=== PATIENT | male | born 1965 | race Caucasian/White ===

== ENCOUNTER → 2018-05-10 | Outpatient (REF) | payer SELFPAY ==
[~2018-05-10] MED LIST: BUP75 PO; LEVO150T72 PO; SIMIVASTIN; TRILI135PT PO
== END ==
PROVIDERS: ATTEND Nurse Practitioner Family
DX: R19.7 Diarrhea, unspecified (principal)
CPT/HCPCS: 82274; 83630; 87045; 87177